=== PATIENT | male | born 2005 | race Caucasian/White ===

== ENCOUNTER 2025-02-13 08:52 | Emergency (ER) | payer OTHER, SELFPAY ==
[2025-02-13 09:00] VITALS: BP 142/84; PULSE 93; RESP 18; TEMP 36.7; O2SAT 98; BMI 25.8
[2025-02-13 09:12] VITALS: BP 144/76; PULSE 100; PULSE 101; O2SAT 97
[2025-02-13 09:15] VITALS: TEMP 36.6
--- NOTE | 2025-02-13 09:22 | ED_ITS ---
HPI - Eye Problem General Chief complaint: Eye Problems Stated complaint: Swollen right eye Time Seen by Provider: 02/13/25 09:21 Source: patient Mode of arrival: Ambulatory History of Present Illness HPI Narrative: Patient is a 19-year-old male presenting to day with right eye swelling and pain. He does wear glasses reports that he had issues with his left eye a few months ago. He was put on some lubricating drops and some antibiotic drops eventually got better. He was ultimately seen by [facility] in [facility]. He was reporting some gross drainage from the right eye no fever or chills. There is no surrounding erythema or swelling. But difficulty time opening his eye. He was sensitive to light. He was using some bacitracin ointment for his right eye that he had for his left eye but only used it for a day or 2. Still having quite a bit of tearing and irritation with that right eye Related Data Previous Rx's Medication Instructions Recorded erythromycin 5 mg/gram (0.5 %) eye 1 cm EYE-BOTH Q4HRWA #3.5 grams 02/13/25 ointment polymyxin B sulfate 10,000 2 drp EYE-RIGHT Q4HRWA #10 mL 02/13/25 unit-trimethoprim 1 mg/mL eye drops Patient History Social History Smoking Status: Never smoker Smoking Status: Never smoker Exam Initial Vital Signs Initial Vital Signs: Vital Signs Temperature 98.1 F 02/13/25 09:00 Pulse Rate 93 H 02/13/25 09:00 Respiratory Rate 18 02/13/25 09:00 Blood Pressure 142/84 H 02/13/25 09:00 Pulse Oximetry 98 02/13/25 09:00 Oxygen Delivery Method Room Air 02/13/25 09:00 GENERAL: Alert pleasant 19-year-old male appears uncomfortable HEENT: Head atraumatic,EOMI, pupils reactive, EYE: Right eye no periorbital edema or erythema difficult to open eye right eye is stained with fluorescein there is a corneal abrasion and dye uptake gross drainage from the eye as well Left eye no periorbital edema or erythema no corneal abrasion or dye uptake no gross drainage CARDIOVASCULAR: Regular rate and rhythm without murmurs, rubs or gallops. RESPIRATORY: Breath sounds equal bilaterally, no wheezes rales or rhonchi. EXTREMITIES: Normal range of motion, no clubbing or edema. Neurovascularly intact NEUROLOGICAL: Alert and oriented x4.Normal gait and speech. SKIN: Warm, dry, no laceration, no petechiae, no rashes or lesions. Course Orders Ordered: Discontinued Medications Fluorescein Sodium (Fluorescein 1 Mg Strip) 1 mg EYE-BOTH NOW ONE Stop: 02/13/25 09:23 Last Admin: 02/13/25 09:55 Dose: 1 mg Documented By: WILLIAM Proparacaine HCl (Proparacaine 0.5% Ophth Juliana) 1 drops EYE-BOTH NOW ONE Stop: 02/13/25 09:23 Last Admin: 02/13/25 09:55 Dose: 1 drops Documented By: WILLIAM Vital Signs Vital signs: Vital Signs - 8 hr 02/13/25 09:00 02/13/25 09:12 02/13/25 09:12 Temperature 98.1 F Pulse Rate 93 H 101 H 100 H Respiratory Rate 18 Blood Pressure 142/84 H 144/76 H Pulse Oximetry 98 97 Oxygen Delivery Method Room Air 02/13/25 09:15 02/13/25 09:52 Temperature 97.8 F 98.4 F Pulse Rate 66 Respiratory Rate 19 Blood Pressure 125/78 Pulse Oximetry 98 Oxygen Delivery Method Room Air MDM - Eye Problem MDM Narrative Medical decision making narrative: Patient 19-year-old male presenting to day with right eye irritation. On exam he was found to have a corneal abrasion. No concern for orbital or preseptal cellulitis at this time. He has already been seen by [facility] recommend outpatient follow up there. At this time treat with helmet ointment and drops. Discharge Plan Departure Patient Disposition: Home Clinical Impression: Corneal abrasion Instructions: Corneal Abrasion Activity Restrictions/Additional Instructions: *You have been diagnosed with right corneal abrasion *What to do: At this time he was antibiotics you should start to feel better in about 2-3 days *Continue to take medications as directed Polytrim eyedrops every 4 hours while awake in the right eye Erythromycin ointment, 1/2 inch in right eye every 4 hours or at nighttime as needed for pain and irritation (this is the same ointment as you were previously perscribed) Tylenol Motrin as needed for pain and irritation *Follow up with your primary care provider in 2-3 days or call [phone] Please follow-up with [facility] *Return to ER if you should have increasing pain redness swelling drainage fever or any new, worsening or concerning symptoms Prescriptions: New erythromycin 5 mg/gram (0.5 %) ointment 1 cm EYE-BOTH Q4HRWA Qty: 3.5 0RF polymyxin B sulf-trimethoprim 10,000 unit- 1 mg/mL drops 2 drp EYE-RIGHT Q4HRWA Qty: 10 0RF Referrals: ProviderMonica [Primary Care Provider] - Stand Alone Forms: Patient Portal/API/Survey, Work Release Note
[2025-02-13 09:52] VITALS: BP 125/78; PULSE 66; RESP 19; TEMP 36.9; O2SAT 98
[2025-02-13] MEDS: PROPARACAINE 0.5% OPHTH SOL 1 DROPS EYE-BOTH (09:55)
[2025-02-13] MEDS: FLUORESCEIN 1 MG STRIP EYE-BOTH (09:55)
== END 2025-02-13 09:55 | disposition home or self-care (01) ==
PROVIDERS: Emergency Provider Emergency Medicine
DX: S05.01XA Injury of conjunctiva and corneal abrasion without foreign body, right eye, initial encounter (principal)
CPT/HCPCS: 99282